=== PATIENT | female | born 1940 ===

== ENCOUNTER 2020-12-12 14:07 | Outpatient (CLI) | payer OTHER ==
[~2020-12-12 14:07] MED LIST: CHILDREN'S ASPI81 MG PO; VITAMIN B12 PO; VITAMIN D PO; [UNRECOGNIZED DRUG - OTHER] PO
== END 2020-12-12 14:09 | disposition home or self-care (01) ==
LOC: NUCLEAR 14:07
PROVIDERS: ATTEND Internal Medicine
DX: M79.89 Other specified soft tissue disorders (principal); I82.491 Acute embolism and thrombosis of other specified deep vein of right lower extremity

== ENCOUNTER 2020-12-17 05:33 | Day surgery (SDC) | payer OTHER | END 2020-12-17 20:30 | disposition home or self-care (01) | LOC: CIR.AMB 05:33 | PROVIDERS: ATTEND Orthopaedic Surgery Hand Surgery | DX: M19.221 Secondary osteoarthritis, right elbow (principal); Z20.822 Contact with and (suspected) exposure to COVID-19 | CPT/HCPCS: 24363; 24102; C1776 ==